=== PATIENT | male | born 1995 | race Hispanic/Latino ===

== ENCOUNTER 2019-01-14 12:32 | Emergency (ER) | payer BC ==
[~2019-01-14] VITALS: Ht 177.8 cm; Wt 111.6 kg
[2019-01-14 14:07] VITALS: BP 116/56
--- NOTE | 2019-01-14 14:18 | REP ---
LEFT KNEE SERIES: Five views. HISTORY: Patellar dislocation. Status post reduction rule out fracture. FINDINGS: Five views of the left knee demonstrate mild patellofemoral narrowing and spur formation. There is some lateral compartment spurring and irregularity of the lateral femoral condyle. No fracture or other traumatic abnormality is seen. IMPRESSION: Mild patellofemoral and lateral compartment osteoarthritis. No fracture seen. Electronically Signed by Pierre Mcpherson MD 01/14/2019 06:47 P
== END 2019-01-14 14:08 | disposition home or self-care (01) ==
LOC: M ED 12:32
DX: S83.012A Lateral subluxation of left patella, initial encounter (principal); X58.XXXA Exposure to other specified factors, initial encounter; Y92.89 Other specified places as the place of occurrence of the external cause; Y93.11 Activity, swimming; Y99.9 Unspecified external cause status; M17.12 Unilateral primary osteoarthritis, left knee

== ENCOUNTER 2019-05-24 08:17 | Emergency (ER) | payer BC, SELFPAY ==
[~2019-05-24] VITALS: Ht 177.8 cm; Wt 107.9 kg
[2019-05-24 09:22] LABS: BASO % 0.3 % (0.0-1.0); EOS # 0.1 10^3/uL (0.0-0.50); EOS % 0.8 % (0.0-3.0); HEMOGLOBIN 14.8 g/dl (13.5-17.5); LYMPH # 1.9 10^3/uL (1.5-6.5); LYMPH % 31.3 % (24.0-44.0); MEAN CORPUSCULAR HEMOGLOBIN 30.8 pg (27.0-33.0); MEAN CORPUSCULAR HGB CONC 34.4 g/dl (32.0-36.5); MEAN CORPUSCULAR VOLUME 89.6 fl (80.0-96.0); MONO # 0.4 10^3/uL (0.0-0.8); MONO % 5.8 % (0.0-5.0); NEUTROPHILS # 3.7 10^3/uL (1.8-7.7); NEUTROPHILS % 61.5 % (36.0-66.0); PLATELET COUNT, AUTOMATED 237 10^3/uL (150-450)
[2019-05-24] MEDS ORDERED: NS 1,000 ML IV ONE (09:30)
[2019-05-24] MEDS ORDERED: KETOROLAC 30 MG/ML VIAL (J1885) IV ONE (09:30)
[2019-05-24] MEDS ORDERED: ONDANSETRON 4MG/2ML VIAL (J2405) IV ONE (09:30)
[2019-05-24 09:53] LABS: ALBUMIN 4.3 GM/DL (3.2-5.2); ALT/SGPT 23 U/L (12-78); BILIRUBIN,DIRECT 0.1 MG/DL (0.0-0.2); BILIRUBIN,TOTAL 0.5 MG/DL (0.2-1.0); BLOOD UREA NITROGEN 11 MG/DL (7-18); CALCIUM LEVEL 9.1 MG/DL (8.5-10.1); CARBON DIOXIDE LEVEL 28 MEQ/L (21-32); CHLORIDE LEVEL 110 MEQ/L (98-107); CREATININE FOR GFR 0.96 MG/DL (0.70-1.30); GLOMERULAR FILTRATION RATE > 60.0 (>60); GLUCOSE, FASTING 76 MG/DL (70-100); LIPASE 94 U/L (73-393); POTASSIUM SERUM 4.6 MEQ/L (3.5-5.1); SODIUM LEVEL 142 MEQ/L (136-145); TOTAL PROTEIN 8.3 GM/DL (6.4-8.2)
[2019-05-24] MEDS ORDERED: REGL10TA6 PO (10:10)
[2019-05-24] MEDS ORDERED: NAPR-837 PO (10:10)
[2019-05-24] MEDS ORDERED: DICY1CAP8 PO (10:10)
[2019-05-24 11:13] VITALS: BP 131/82
== END 2019-05-24 11:15 | disposition home or self-care (01) ==
LOC: M ED 08:17
DX: R11.2 Nausea with vomiting, unspecified (principal); R19.7 Diarrhea, unspecified; R10.30 Lower abdominal pain, unspecified
CPT/HCPCS: 80048; 80076; 81001; 83690; 85025; 96374; 96375; 99284; J1885; J2405

== ENCOUNTER 2019-08-01 02:11 | Emergency (ER) | payer SELFPAY ==
[~2019-08-01] VITALS: Ht 177.8 cm; Wt 104.5 kg
[~2019-08-01 02:11] MED LIST: DICY1CAP8 PO; NAPR-837 PO; REGL10TA6 PO
[2019-08-01] MEDS ORDERED: GI COCKTAIL 50ML BTL(HYOSCYAMINE/MAALOX/LIDOCAINE VISCOUS)(1:3:1) PO ONE (03:15)
[2019-08-01] MEDS ORDERED: OMEP40CA2 PO (04:05)
[2019-08-01 04:15] VITALS: BP 121/79
[2019-08-01] MEDS ORDERED: OMEPRAZOLE 20 MG CAP PO ONE (04:15)
--- NOTE | 2019-08-01 06:30 | REP ---
Clinical: Cough and shortness of breath . Comparison: None . Technique: PA and lateral. Findings: The mediastinum and cardiac silhouette are normal. The lung escamilla are clear and without acute consolidation, effusion, or pneumothorax. The skeletal structures are intact and normal. Impression: 1. No acute cardiopulmonary process. Electronically Signed by Ruslan Gamez MD 08/01/2019 06:22 A
--- NOTE | 2019-08-01 21:26 | ECGEPIP ---
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
== END 2019-08-01 04:32 | disposition home or self-care (01) ==
LOC: M ED 02:11
DX: K21.9 Gastro-esophageal reflux disease without esophagitis (principal); R06.02 Shortness of breath